=== PATIENT | female | born 1995 | race Caucasian/White ===

== ENCOUNTER 2021-06-14 10:46 | Emergency (ER) | payer SELFPAY ==
[~2021-06-14] VITALS: Ht 162.6 cm; Wt 49.0 kg
--- NOTE | 2021-06-14 11:10 | NUR ---
C/O DIZZINESS WITH ON & OFF NOSE BLEED X 1 WK & RECENT RECTAL BLEED AFTER USING BR PER PT. AAOX4, VSS. RR EVEN & UNLABORED. DENIES CP, SOB, N/V AT THIS TIME. AWAITING EVAL BY [facility]. WILL CONT TO MONITOR.
[2021-06-14] MEDS ORDERED: IV NS 0.9% 500 ML BAG IV ONE (13:00)
[2021-06-14 13:06] LABS: BASOPHILS # (AUTO) 0.1 K/uL (0.0-0.2); BASOPHILS % (AUTO) 0.7 % (0.0-2.0); EOSINOPHILS % (AUTO) 0.2 % (0.0-6.0); HEMATOCRIT 42 % (33-45); HEMOGLOBIN 13.8 g/dL (11.5-14.8); LYMPHOCYTES # (AUTO) 1.3 K/uL (0.8-4.8); LYMPHOCYTES % (AUTO) 13.6 % (20.0-44.0); MEAN CORPUSCULAR HGB CONC 33 g/dl (31.0-36.0); MEAN CORPUSCULAR VOLUME 90 fL (82-100); MONOCYTES # (AUTO) 0.4 K/uL (0.1-1.30); MONOCYTES % (AUTO) 4.1 % (2.0-12.0); NEUTROPHILS # (AUTO) 7.7 K/uL (1.8-8.9); NEUTROPHILS % (AUTO) 81.4 % (43.0-81.0); PLATELET COUNT (AUTO) 175 K/uL (150-450); RED BLOOD CELL COUNT(AUTO) 4.66 MIL/uL (4.0-5.2); WHITE BLOOD COUNT (AUTO) 9.5 K/uL (4.3-11.0)
--- NOTE | 2021-06-14 13:12 | NUR ---
TAKEN TO CT
[2021-06-14 13:20] LABS: CALCIUM, SERUM 9.1 mg/dL (8.5-10.1); CREATININE 0.7 mg/dL (0.6-1.3); POTASSIUM 3.7 mmol/L (3.5-5.1)
[2021-06-14] MEDS ORDERED: MECL-182 PO (13:43)
[2021-06-14] MEDS ORDERED: BISA-79 PO (13:45)
[2021-06-14] MEDS ORDERED: MECLIZINE HCL 12.5 MG TABLET PO ONE (14:00)
[2021-06-14] MEDS ORDERED: MECLIZINE HCL 12.5 MG TABLET ONE (14:02)
--- NOTE | 2021-06-14 14:35 | NUR ---
IV removed. Catheter intact and site benign. Pressure and 4x4 applied to site. No bleeding noted.Patient discharged to home in stable condition. Written and verbal after care instructions given. Patient verbalizes understanding of instruction.
[2021-06-14 14:36] VITALS: BP 109/71
== END 2021-06-14 14:36 | disposition home or self-care (01) ==
LOC: ER 11:00
DX: R42 Dizziness and giddiness (principal); K59.00 Constipation, unspecified
CPT/HCPCS: 36415; 70450; 80048; 85025; 99284; J7040; J8597